=== PATIENT | male | born 1995 | race African-American/Black ===

== ENCOUNTER 2017-07-04 19:56 | Inpatient (IN) | payer OTHER ==
[~2017-07-04] VITALS: Ht 180.3 cm; Wt 90.7 kg
[2017-07-04 20:00] VITALS: BP 109/64
--- NOTE | 2017-07-04 20:07 | NUR ---
Patient ambulated to bed 07.
--- NOTE | 2017-07-04 20:11 | NUR ---
PATIENT PRESENTS TO ED WITH BACK PAIN 2 DAYS AGO S/P SPINAL TAP, FEVER FOR A WEEK, [place] AN HOUR AGO, NAUSEA,DIARRHEA, POOR APPETITE, SEVERE HEADACHE,FEVER . PT STATES IT WAS DONE IN [place] . DENIES VOMITTING,SKIN IS PINK/WARM/DRY; AAOX4 WITH EVEN AND STEADY GAIT; LUNGS CLEAR BL; HR EVEN AND REGULAR; PT DENIES CP, SOB, OR COUGH AT THIS TIME; PATIENT STATES PAIN OF 10/10 AT THIS TIME; PATIENT POSITIONED FOR COMFORT; HOB ELEVATED; BEDRAILS UP X2; BED DOWN. ER MD MADE AWARE OF PT STATUS.
--- NOTE | 2017-07-04 21:08 | NUR ---
DR. ROSADO AT BEDSIDE
[2017-07-04] MEDS ORDERED: fentaNYL 0.05 MG/ML VIAL IVP ONE (21:30)
[2017-07-04] MEDS ORDERED: NACL 0.9% 1,000 ML IV ONE (21:30)
--- NOTE | 2017-07-04 21:56 | NUR ---
PT USING HIS PHONE, STILL COMPLAINING OF PAIN, FAMILY AT BEDSIDE, NO VOMITTING NOTED.
[2017-07-04 22:08] LABS: BASOPHILS # (AUTO) 0.3 K/uL (0.00-0.22); MEAN CORPUSCULAR VOLUME 89 fL (80-94); WHITE BLOOD COUNT (AUTO) 6.3 K/uL (4.5-11.0)
[2017-07-04 22:16] LABS: BASOPHILS % (AUTO) 4.3 % (0.0-2.0); EOSINOPHILS # (AUTO) 0.2 K/uL (0-0.4); EOSINOPHILS % (AUTO) 2.9 % (0.0-4.0); HEMATOCRIT 39.5 % (36-52); HEMOGLOBIN 13.1 g/dL (12.0-18.0); LYMPHOCYTES # (AUTO) 1.9 K/uL (2.0-11.5); LYMPHOCYTES % (AUTO) 30.4 % (20.5-51.1); MEAN CORPUSCULAR HEMOGLOBIN 30 pg (27-31); MEAN CORPUSCULAR HGB CONC 33 g/dL (33-37); MONOCYTES # (AUTO) 0.9 K/uL (0.8-1.0); MONOCYTES % (AUTO) 14.3 % (1.7-9.3); NEUTROPHILS % (AUTO) 48.1 % (42.2-75.2); PLATELET COUNT (AUTO) 206 K/uL (140-450); RED BLOOD CELL COUNT(AUTO) 4.43 MIL/uL (4.20-6.10); RED CELL DISTRIBUTION WIDTH 12.1 % (11.6-13.7)
--- NOTE | 2017-07-04 22:16 | NUR ---
IVF ONGOING PT STILL COMPLAINING OF BACK PAIN 06/01, PT TRYING TO REST, WILL CONTINUE TO OBSERVE PT.
[2017-07-04 22:23] LABS: ALBUMIN 3.3 g/dL (3.4-5.0); ANION GAP 11.1 (8-16); CALCIUM 8.6 mg/dL (8.5-10.1); CARBON DIOXIDE 25.7 mmol/L (21-32); CREATININE 1.4 mg/dL (0.7-1.3); POTASSIUM 3.8 mmol/L (3.5-5.1); TOTAL BILIRUBIN 0.5 mg/dL (0.0-1.0)
[2017-07-04 22:28] LABS: INR 1.3 (0.8-1.2); PARTIAL THROMBOPLASTIN TIME 32.3 secs (22-35.6); PROTHROMBIN TIME 12.9 secs (10.8-13.4)
[2017-07-04] MEDS ORDERED: ACETAMINOPHEN 325 MG TAB PO PRN (22:55)
[2017-07-04] MEDS ORDERED: NACL 0.9% 1,000 ML IV SCH (22:55)
[2017-07-04] MEDS ORDERED: DOCUSATE SODIUM 100 MG GELCAP PO PRN (22:55)
[2017-07-04] MEDS ORDERED: ONDANSETRON 4 MG/2 ML VIAL IM/IVP PRN (22:55)
--- NOTE | 2017-07-04 23:07 | NUR ---
CALL PLACE TO TELE NURSE FOR REPORT WILL CALL ME BACK
[2017-07-04] MEDS ORDERED: HYDROmorphone 1 MG/ML AMP IVP ONE (23:10)
--- NOTE | 2017-07-04 23:25 | NUR ---
Pt report given to LULY. Transfer of care at this time.PT AAO, SMILING, FAMILY AT BEDSIDE
--- NOTE | 2017-07-04 23:35 | NUR ---
ADMITTED PATIENT TO THE TELE UNIT, PATIENT AWAKE ALERT ORIENTED X4, NO S/S OF ACUTE DISTRESS NOTED, RESPIRATION EVEN AND UNLABORED, TELE MONITOR IN PLACE. PATIENT'S GRANDMOTHER AT BEDSIDE. PATIENT STATED BACK PAIN 06/01, DILAUDID WAS GIVEN IN THE ER AT 2322, LOWER THE HEAD OF BED TO 30 DEGREE, PATIENT STATED,"BETTER". PLAN OF CARE DISCUSSED, PATIENT VERBALIZED UNDERSTANDING, CALL LIGHT WITHIN REACH, SAFETY MEASURE ENSURED, WARM BLANKET WAS OFFERED, WILL CONTINUE TO MONITOR.
[2017-07-04 23:38] LABS: CHOL/HDL RATIO 4.1 (1-4.5); FREE T4 (FREE THYROXINE) 1.12 ng/dL (0.76-1.46); PHOSPHORUS 3.4 mg/dL (2.5-4.9); THYROID STIMULATING HORMONE 1.31 uIU/mL (0.34-3.74)
[2017-07-04 23:40] VITALS: BP 112/63
[2017-07-05] VITALS: BP 112/63
--- NOTE | 2017-07-05 00:10 | NUR ---
PATIENT IS EXAMINED BY DR. ARMENTA IN THE ROOM
--- NOTE | 2017-07-05 01:30 | NUR ---
SCD NOT APPLIED BECAUSE PATIENT IS AMBULATORY.
[2017-07-05 01:32] LABS: APPEARANCE,URINE HAZY (CLEAR); BILIRUBIN,URINE 1+ (NEGATIVE); BLOOD, URINE NEGATIVE (NEGATIVE); LEUKOCYTE ESTERASE ,URINE NEGATIVE (NEGATIVE); NITRITE, URINE NEGATIVE (NEGATIVE); PROTEIN,URINE 1+ (NEGATIVE); UGLUCOSE NEGATIVE (NEGATIVE)
[2017-07-05 01:41] LABS: AMPHETAMINE, URINE NEG. ng/ml (NEG <=1000); BARBITURATE, URINE NEG. ng/ml (NEG <=200); BENZODIAZEPINE, URINE NEG. ng/mL (NEG <=200); CANNABINOID, URINE NEG. ng/mL (NEG <=50); COCAINE, URINE NEG. ng/mL (NEG <=300); OPIATE, URINE POS. ng/mL (NEG <=2000); PHENCYCLIDINE SCREEN,URINE NEG. ng/mL (NEG <=25)
[2017-07-05 01:42] LABS: COLOR,URINE AMBER (YELLOW)
[2017-07-05 01:43] LABS: ICTOTEST NEGATIVE (NEGATIVE)
[2017-07-05 01:44] LABS: BACTERIA,URINE OCCASSIONAL /HPF (None Seen); RBC,URINE 0-5 (RARE) /HPF (0-5); SQUAMOUS EPITHELIAL CELL,UR 0-3 (FEW) /LPF (0-3 (FEW))
[2017-07-05 01:45] LABS: MUCUS,URINE 3+ /LPF (None Seen)
[2017-07-05 04:00] VITALS: BP 110/54
[2017-07-05] MEDS: MORPHINE SULFATE 2 MG/ML SYR IVP PRN ×4 (04:16→19:46)
--- NOTE | 2017-07-05 04:16 | NUR ---
PATIENT STATED BACK PAIN 8/10, MEDICATED ORDERED, REPOSITIONED PATIENT TO HIS COMFORTABLE POSITION. CALL LIGHT WITHIN REACH, SAFETY MEASURE ENSURED, WILL CONTINUE TO MONITOR.
--- NOTE | 2017-07-05 06:30 | NUR ---
PATIENT SLEEPING IN BED, NO S/S OF ACUTE DISTRESS NOTED, RESPIRATION EVEN AND UNLABORED, WILL CONTINUE TO MONITOR.
--- NOTE | 2017-07-05 07:02 | NUR ---
PATIENT HAS BEEN SCREENED AND CATEGORIZED LOW NUTRITION RISK. PATIENT WILL BE SEEN WITHIN 7 DAYS OF ADMISSION. 07/10/17 KEVIN HAYNES MS, RDN
--- NOTE | 2017-07-05 07:25 | NUR ---
ENDORSED PLAN OF CARE TO DAY RN, PATIENT RESTING IN BED, IN STABLE CONDITION. RESPIRATION EVEN AND UNLABORED.
--- NOTE | 2017-07-05 07:26 | NUR ---
PT AWAKE AND ALERT, NO SIGNS OF ACUTE DISTRESS. BOWEL SOUNDS ACTIVE IN ALL 4 QUADRANTS. BOWEL AND BLADDER CONTINENCE. SKIN INTACT. AMBULATORY WITH BRP. IV PATENT AND ASYMPTOMATIC. PATIENT HAS PAIN 8/10 IN BACK WILL MEDICATE. RE-ORIENTED TO HOSPITAL AND TO UNIT, PATIENT VERBALIZED UNDERSTANDING. BED IN LOW POSITION WITH BILATERAL HALF SIDE RAILS UP, CALL LIGHT WITHIN REACH. WILL CONTINUE TO MONITOR.
[2017-07-05] MEDS ORDERED: SUMAtriptan 6 MG/0.5 ML VIAL SUBQ PRN (07:30)
[2017-07-05 08:00] VITALS: BP 98/53
--- NOTE | 2017-07-05 08:18 | NUR ---
PATIENT RESTING COMFORTABLY IN BED, COMPLAINT OF PAIN 8/10 IN BACK. ADMINISTERED MORPHINE IVP ORDERED, WILL CONTINUE TO MONITOR.
[2017-07-05] MEDS ORDERED: KETOROLAC 30 MG/ML VIAL IM PRN (09:05)
--- NOTE | 2017-07-05 10:30 | NUR ---
PT SLEEPING, NO SIGNS OF ACUTE DISTRESS. BED IN LOW POSITION WITH BILATERAL HALF SIDE RAILS UP, CALL LIGHT WITHIN REACH, SAFETY CHECKS IN PLACE. WILL CONTINUE TO MONITOR.
[2017-07-05 12:00] VITALS: BP 102/50
--- NOTE | 2017-07-05 12:00 | NUR ---
PATIENT TEMPERATURE OF 101.4 AND PULSE 72. MEDICATED WITH PRN TYLENOL ORDERED AND APPLIED ICE PACKS BETWEEN PATIENT ANTERIOR THIGH AND GROIN. WILL CONTINUE TO MONITOR.
--- NOTE | 2017-07-05 12:19 | NUR ---
DR ECHEVARRIA MADE AWARE OF PATIENT TEMPERATURE OF 101.4 AND PULSE 72. WILL CONTINUE TO MONITOR.
[2017-07-05] MEDS: NACL 0.9% 1,000 ML IV SCH ×2 (12:26→14:56)
--- NOTE | 2017-07-05 13:18 | NUR ---
RE-ASSESSED PATIENT TEMPERATURE AND PULSE. TEMPERATURE IS 99.2 AND PULSE IS 82. WILL CONTINUE TO MONITOR.
--- NOTE | 2017-07-05 14:02 | NUR ---
RECEIVED NEW ORDER FOR PATIENT TO LAY FLAT TO CONTROL HEADACHE AND DUE TO RECENT LUMBAR PUNCTURE. NOTED, WILL CARRY OUT.
[2017-07-05] MEDS: HYDROcodone/APAP 7.5/325 MG 1 TAB PO PRN ×2 (15:40→22:10)
--- NOTE | 2017-07-05 15:40 | NUR ---
PATIENT RESTING COMFORTABLY IN BED, NO SIGNS OF ACUTE DISTRESS. COMPLAINT OF PAIN 6/10 IN BACK, WILL MEDICATE. PATIENT LYING FLAT, BED IN LOW POSITION WITH BILATERAL HALF SIDE RAILS UP, CALL LIGHT WITHIN REACH.
--- NOTE | 2017-07-05 15:50 | NUR ---
PT SLEEPING, NO SIGNS OF ACUTE DISTRESS. BED IN LOW POSITION LYING FLAT, WITH BILATERAL HALF SIDE RAILS UP, CALL LIGHT WITHIN REACH. SAFETY CHECKS IN PLACE, WILL CONTINUE TO MONITOR.
[2017-07-05 16:00] VITALS: BP 104/56
--- NOTE | 2017-07-05 16:40 | NUR ---
PT SLEEPING, NO SIGNS OF ACUTE DISTRESS. PATIENT LYING FLAT WITH BILATERAL HALF SIDE RAILS UP, CALL LIGHT WITHIN REACH. SAFETY CHECKS IN PLACE, WILL CONTINUE TO MONITOR.
--- NOTE | 2017-07-05 17:58 | NUR ---
PT SITTING UPRIGHT EATING DINNER, NO SIGNS OF ACUTE DISTRESS. BED IN LOW POSITION WITH BILATERAL HALF SIDE RAILS UP, CALL LIGHT WITHIN REACH. WILL CONTINUE TO MONITOR.
--- NOTE | 2017-07-05 19:16 | NUR ---
PT AWAKE AND ALERT, NO SIGNS OF ACUTE DISTRESS. ENDORSED TO TECHNICIAN HELPER INSTRUMENT NURSE FOR CONTINUITY OF CARE.
--- NOTE | 2017-07-05 19:20 | NUR ---
RECEIVED REPORTS FROM DAY RN, PATIENT RESTING IN BED, AWAKE ALERT ORIENTED X4, NO S/S OF ACUTE DISTRESS NOTED, RESPIRATION EVEN AND UNLABORED, PATIENT STATED BACK PAIN 06/01, ENSURED PATIENT THAT PAIN MEDICATION WOULD BE GIVEN ORDERED, PLAN OF CARE DISCUSSED, PATIENT VERBALIZED UNDERSTANDING, CALL LIGHT WITHIN REACH, SAFETY MEASURE ENSURED, WILL CONTINUE TO MONITOR
--- NOTE | 2017-07-05 19:46 | NUR ---
PAIN MEDICATION GIVEN ORDERED, PATIENT RESTING IN BED, ROOM LIGHTS DIM, WILL CONTINUE TO MONITOR.
[2017-07-05 20:00] VITALS: BP 105/66
--- NOTE | 2017-07-05 22:22 | NUR ---
MADE ROUNDS, PATIENT REPORTED BACK PAIN 5/10, MEDICATED ORDERED, PATIENT RESTING IN BED, NO S/S OF ACUTE DISTRESS NOTED, RESPIRATION EVEN AND UNLABORED, WILL CONTINUE TO MONITOR.
[2017-07-06] VITALS: BP 113/59
[2017-07-06] MEDS: NACL 0.9% 1,000 ML IV SCH ×4 (00:34→22:30)
--- NOTE | 2017-07-06 00:37 | NUR ---
STARTED A NEW BAY OF NS, PATIENT SLEEPING IN BED, NO S/S OF ACUTE DISTRESS NOTED, RESPIRATION EVEN AND UNLABORED, SAFETY MEASURE ENSURED, WILL CONTINUE TO MONITOR.
--- NOTE | 2017-07-06 02:26 | NUR ---
MADE ROUNDS, PATIENT SLEEPING IN BED, NO S/S OF ACUTE DISTRESS NOTED, RESPIRATION EVEN AND UNLABORED, SAFETY MEASURE ENSURED, SCD APPLIED ON BOTH LOWER EXTREMITIES, WILL CONTINUE TO MONITOR.
[2017-07-06 04:00] VITALS: BP 102/57
--- NOTE | 2017-07-06 04:50 | NUR ---
PATIENT SLEEPING IN BED, NO S/S OF ACUTE DISTRESS NOTED, RESPIRATION EVEN AND UNLABORED, CALL LIGHT WITHIN REACH, SAFETY MEASURE ENSURED, WILL CONTINUE TO MONITOR.
[2017-07-06 05:51] LABS: HEMATOCRIT 39.1 % (36-52); HEMOGLOBIN 13.1 g/dL (12.0-18.0); MEAN CORPUSCULAR HEMOGLOBIN 30 pg (27-31); MEAN CORPUSCULAR HGB CONC 34 g/dL (33-37); MEAN CORPUSCULAR VOLUME 90 fL (80-94); PLATELET COUNT (AUTO) 225 K/uL (140-450); RED BLOOD CELL COUNT(AUTO) 4.33 MIL/uL (4.20-6.10); RED CELL DISTRIBUTION WIDTH 11.9 % (11.6-13.7); WHITE BLOOD COUNT (AUTO) 7.3 K/uL (4.5-11.0)
--- NOTE | 2017-07-06 06:09 | NUR ---
PATIENT SLEEPING IN BED, NO S/S OF ACUTE DISTRESS NOTED, RESPIRATION EVEN AND UNLABORED, CALL LIGHT WITHIN REACH, SAFETY MEASURE ENSURED, WILL CONTINUE TO MONITOR.
[2017-07-06 06:14] LABS: ANION GAP 9.4 (8-16); CALCIUM 8.2 mg/dL (8.5-10.1); CREATININE 1.5 mg/dL (0.7-1.3); POTASSIUM 4.4 mmol/L (3.5-5.1)
[2017-07-06 06:19] LABS: BAND % (MANUAL) 14 % (0-8); LYMPHOCYTES % (MANUAL) 28 % (20-46); MAGNESIUM 1.7 mg/dL (1.8-2.4); MONOCYTES % (MANUAL) 11 % (5-12); NEUTROPHILS % (MANUAL) 47 (43-65); PHOSPHORUS 2.9 mg/dL (2.5-4.9)
--- NOTE | 2017-07-06 07:05 | NUR ---
ENDORSED PLAN OF CARE TO DAY RN. PATIENT IS IN STABLE CONDITION, NO S/S OF ACUTE DISTRESS, RESPIRATION EVEN AND UNLABORED.
--- NOTE | 2017-07-06 07:06 | NUR ---
PT AWAKE AND ALERT, NO SIGNS OF ACUTE DISTRESS. BOWEL SOUNDS ACTIVE IN ALL 4 QUADRANTS. BOWEL AND BLADDER CONTINENCE. SKIN INTACT. AMBULATORY WITH BRP. PATIENT HAS PAIN 5/10 IN HEAD AND BACK DOESN'T WANT PAIN MEDICATION AT THIS TIME. RE-ORIENTED TO HOSPITAL AND TO UNIT, PT VERBALIZED UNDERSTANDING. BED IN LOW POSITION WITH BILATERAL HALF SIDE RAILS UP, CALL LIGHT WITHIN REACH. WILL CONTINUE TO MONITOR.
[2017-07-06 07:49] VITALS: BP 118/61
[2017-07-06] MEDS: HYDROcodone/APAP 7.5/325 MG 1 TAB PO PRN ×2 (08:07→18:42)
[2017-07-06 09:07] LABS: HEPATITIS A ANTIBODY IGM Negative (Negative); HEPATITIS A ANTIBODY TOTAL Negative (Negative); HEPATITIS B CORE AB TOTAL Negative (Negative); HEPATITIS B CORE, IGM Negative (Negative); HEPATITIS B SURFACE AB Reactive (.); HEPATITIS B SURFACE ANTIGEN Negative (Negative); HEPATITIS C VIRUS ANTIBODY <0.1 s/co ratio (0.0-0.9)
[2017-07-06] MEDS ORDERED: APAP/BUTAL/CAFF 325/50/40 MG 1 TAB PO SCH ×2 (09:49→12:00)
[2017-07-06] MEDS ORDERED: IBUPROFEN 600 MG TAB PO SCH ×2 (09:51→12:00)
--- NOTE | 2017-07-06 09:54 | NUR ---
RECEIVED NEW MEDICATION ORDERS, CHANGE TO MED SURG, REGULAR DIET AND TO KEEP SUPINE FOR HEADACHE. NOTED, WILL CARRY OUT.
[2017-07-06] MEDS: IBUPROFEN 600 MG TAB PO SCH ×2 (11:05→17:05)
[2017-07-06] MEDS: APAP/BUTAL/CAFF 325/50/40 MG 1 TAB PO SCH ×2 (11:05→17:05)
--- NOTE | 2017-07-06 12:30 | NUR ---
PT SITTING UPRIGHT EATING LUNCH, NO SIGNS OF ACUTE DISTRESS. SAFETY CHECK IN PLACE. WILL CONTINUE TO MONITOR.
--- NOTE | 2017-07-06 12:32 | NUR ---
[facility] NOTE: FAXED INITIAL REVIEW TO [facility] [phone] [facility]ILL [id number] Addendum: 07/06/17 at 1329 by Katty Connell CM [facility] FAX# [phone]
--- NOTE | 2017-07-06 14:00 | NUR ---
PATIENT LYING SUPINE RESTING, NO SIGNS OF ACUTE DISTRESS. SAFETY CHECKS IN PLACE, WILL CONTINUE TO MONITOR.
--- NOTE | 2017-07-06 15:20 | NUR ---
PATIENT TAKING SHOWER, NO SIGNS OF ACUTE DISTRESS. WILL CONTINUE TO MONITOR.
[2017-07-06 16:00] VITALS: BP 110/56
--- NOTE | 2017-07-06 16:30 | NUR ---
PT RESTING IN SUPINE POSITION COMFORTABLY IN BED, NO SIGNS OF ACUTE DISTRESS. SAFETY CHECKS IN PLACE. WILL CONTINUE TO MONITOR.
--- NOTE | 2017-07-06 16:42 | NUR ---
RECEIVED ORDERS FOR AM LABS FOR 07/07/17. NOTED, WILL CARRY OUT.
--- NOTE | 2017-07-06 18:42 | NUR ---
PATIENT COMPLAINT OF PAIN 6/10 IN BACK, ADMINISTERED PRN PAIN MEDICATION ORDERED. PT LYING IN SUPINE POSITION, NO SIGNS OF ACUTE DISTRESS. WILL CONTINUE TO MONITOR.
--- NOTE | 2017-07-06 19:20 | NUR ---
PT AWAKE AND ALERT, NO SIGNS OF ACUTE DISTRESS. ENDORSED TO CHAINSTITCH PANTS OUTSEAMER NURSE FOR CONTINUITY OF CARE.
--- NOTE | 2017-07-06 19:25 | NUR ---
RECEIVED PT IN STABLE CONDITION FROM AM NURSE FOR CONTINUITY OF CARE. AWAKE,ALERT ALERT AND ORIENTED X4. MED SURG PT . JUST MEDICATED FOR PAIN BY AM NURSE. IVF INFUSING ON THE LT AC #20.CLEAR AND PATENT. MOM AT BEDSIDE. PLAN OF CARE DISCUSSED AND VERBALIZED UNDERSTANDING. MADE AWARE THAT NEEDS TO BE FLAT ON BED AND AGAIN VERBALIZED UNDERSTANDING. CALL LIGHT PLACED WITHIN EASY REACH. . BED ON LOW POSITION. FREQUENT ROUNDS NEEDED. WILL CONTINUE TO MONITOR.
[2017-07-06] MEDS ORDERED: MAGNESIUM OXIDE 400 MG TAB PO ONE (19:50)
[2017-07-06 21:02] VITALS: BP 127/69
[2017-07-06] MEDS: MORPHINE SULFATE 2 MG/ML SYR IVP PRN (21:10)
--- NOTE | 2017-07-06 22:10 | NUR ---
MADE ROUNDS. AWAKE, WITH NO MORE C/O OF ANY PAIN NOTED. FAMILY MEMBERS AT BEDSIDE. WILL CONTINUE TO MONITOR.
[2017-07-07 00:11] VITALS: BP 122/70
[2017-07-07] MEDS: IBUPROFEN 600 MG TAB PO SCH ×2 (00:14→05:52)
[2017-07-07] MEDS: APAP/BUTAL/CAFF 325/50/40 MG 1 TAB PO SCH ×2 (00:14→05:51)
--- NOTE | 2017-07-07 00:14 | NUR ---
PT STILL WITH MILD TO MODERATE PAIN . ROUTINE PO MEDS FOR PAIN GIVEN ORDERED. WILL CONTINUE TO MONITOR
--- NOTE | 2017-07-07 02:00 | NUR ---
MADE ROUNDS . SLEEPING AT THIS TIME. NO S/S OF ANY DISCOMFORT NOR PAIN NOTED.
--- NOTE | 2017-07-07 04:30 | NUR ---
MADE ROUNDS. PT IS ASLEEP. NO S/S OF ANY DISCOMFORT NOR PAIN NOTED.
[2017-07-07] MEDS: NACL 0.9% 1,000 ML IV SCH (06:12)
[2017-07-07 06:21] LABS: HEMOGLOBIN A1C 5.5 % (4.8-5.6); T4 (THYROXINE) 9.1 ug/dL (4.5-12.0)
[2017-07-07 06:31] LABS: HEMATOCRIT 38.6 % (36-52); HEMOGLOBIN 12.8 g/dL (12.0-18.0); MEAN CORPUSCULAR HEMOGLOBIN 30 pg (27-31); MEAN CORPUSCULAR HGB CONC 33 g/dL (33-37); MEAN CORPUSCULAR VOLUME 90 fL (80-94); PLATELET COUNT (AUTO) 203 K/uL (140-450); RED BLOOD CELL COUNT(AUTO) 4.28 MIL/uL (4.20-6.10); RED CELL DISTRIBUTION WIDTH 12.3 % (11.6-13.7); WHITE BLOOD COUNT (AUTO) 5.3 K/uL (4.5-11.0)
[2017-07-07 06:45] LABS: ANION GAP 9.4 (8-16); CALCIUM 8.4 mg/dL (8.5-10.1); CARBON DIOXIDE 27.9 mmol/L (21-32); CREATININE 1.3 mg/dL (0.7-1.3); POTASSIUM 4.3 mmol/L (3.5-5.1)
[2017-07-07 06:58] LABS: BAND % (MANUAL) 7 % (0-8); EOSINOPHILS % (MANUAL) 9 % (0-4); LYMPHOCYTES % (MANUAL) 39 % (20-46); MONOCYTES % (MANUAL) 13 % (5-12); NEUTROPHILS % (MANUAL) 32 (43-65)
--- NOTE | 2017-07-07 07:28 | NUR ---
ENDORSED PT IN STABLE CONDITION TO AM NURSE.
--- NOTE | 2017-07-07 07:29 | NUR ---
RECEIVED PT IN BED. ASLEEP. AROUSABLE TO VOICE. ALERT ORIENTED X4. NO SOB NOTED. DENIES ANY PAIN OR DISCOMFORT AT THIS TIME. POSITIVE BOWEL SOUNDS NOTED ON FOUR QUADRANTS. PT AMBULATORY BRP. MOTHER AT BEDSIDE. SAFETY PRECAUTION IN PLACE. CALL LIGHT WITHIN REACH.
[2017-07-07 08:00] VITALS: BP 117/51
[2017-07-07] MEDS ORDERED: IBUP-2213 PO ×2 (09:38→11:09)
--- NOTE | 2017-07-07 09:49 | NUR ---
CM NOTE: FAXED CONCURRENT REVIEW TO [facility] [phone] [facility] CHAN EXT [phone]
--- NOTE | 2017-07-07 10:33 | NUR ---
DISCHARGE ORDERS MADE AND CARRIED OUT. EXPLAINED DISCHARGE INSTRUCTIONS AND HEALTH TEACHINGS GIVEN TO PT. AND GRANDMOTHER MARC OZUNA AT BEDSIDE. PT AND GRANDMOTHER VERBALIZED UNDERSTANDING. REMINDED TO GO TO THE SCHEDULED APPOINTMENT WITH DR. PERKINS ON Thursday AT 2:30PM. PT AND GRANDMOTHER VERBALIZED UNDERSTANDING. DISCHARGE PAPERS AND INSTRUCTIONS UNDERSTOOD BY PT. AND SIGNED DISCHARGE PAPERS. IV CANNULA REMOVED AND INTACT. NAME ARMBAND REMOVED. NO SOB NOTED. DENIES ANY PAIN OR DISCOMFORT AT THIS TIME.
--- NOTE | 2017-07-07 10:45 | NUR ---
PT WHEELED OUT GOING TO THE HOSPITAL PARKING LOT WITH GRANDMOTHER MARC, TO THEIR PRIVATE OWNED VEHICLE. NO SOB NOTED. DENIES ANY PAIN OR DISCOMFORT AT THIS TIME. PT DISCHARGED ON STABLE CONDITION.
== END 2017-07-07 10:45 | disposition home or self-care (01) | DRG 102 ==
LOC: MED 19:56 → MTU 22:55
PROVIDERS: ADMIT Family Medicine; ATTEND Family Medicine
DX: G97.1 Other reaction to spinal and lumbar puncture (principal); N17.0 Acute kidney failure with tubular necrosis; E44.1 Mild protein-calorie malnutrition; E66.3 Overweight; Z68.27 Body mass index [BMI] 27.0-27.9, adult; E83.42 Hypomagnesemia; E83.52 Hypercalcemia; R74.0 Nonspecific elevation of levels of transaminase and lactic acid dehydrogenase [LDH]
CPT/HCPCS: 36415; 71020; 76700; 80048; 80053; 80305; 81001; 82150; 83036; 83690; 83735; 83880; 84100; 84436; 84439; 84443; 84479; 85025; 85610; 85730; 86704; 86706; 86708; 86709; 86803; 87040; 87081; 87086; 87340; 93005; 96361; 96374; 96375; 99285; J1170; J2270; J3010; J3030; J7030; Q0092

== ENCOUNTER 2017-07-12 12:29 | Emergency (ER) | payer OTHER ==
[~2017-07-12] VITALS: Ht 180.3 cm; Wt 89.8 kg
[~2017-07-12 12:29] MED LIST: IBUP-2213 PO
[2017-07-12 12:41] VITALS: BP 112/70
--- NOTE | 2017-07-12 12:54 | NUR ---
Patient to bed 04.
--- NOTE | 2017-07-12 13:00 | NUR ---
Dr. Cheng evaluating patient at bedside.
--- NOTE | 2017-07-12 13:05 | NUR ---
PATIENT PRESENTS TO ED WITH C/O BROWN COLORED URINE X 2 WKS---FOUL SMELL X YESTERDAY---PT TOOK 1 DOSE OF BUT/TYLENOL/CAFF ON THURSDAY AND NOTED FOUL URINE SMELL AND PRURITUS DENIES RECENT INJURY OR STRENUOUS ACITIVITIES, DENIES BACK PAIN +FEVER/CHILLS--- DC FROM [facility] [facility] 5 DAYS AGO HX---DENIES RX---TYLENOL ; DENIES N/V/D; SKIN IS PINK/WARM/DRY; AAOX4 WITH EVEN AND STEADY GAIT; LUNGS CLEAR BL; HR EVEN AND REGULAR; PT DENIES ANY FEVER, CP, SOB, OR COUGH AT THIS TIME; PATIENT STATES PAIN OF 0/10 AT THIS TIME; VSS; PATIENT POSITIONED FOR COMFORT; HOB ELEVATED; BEDRAILS UP X2; BED DOWN. ER MADE AWARE OF PT STATUS.
[2017-07-12 13:21] LABS: APPEARANCE,URINE CLEAR (CLEAR); BILIRUBIN,URINE NEGATIVE (NEGATIVE); BLOOD, URINE NEGATIVE (NEGATIVE); COLOR,URINE YELLOW (YELLOW); LEUKOCYTE ESTERASE ,URINE NEGATIVE (NEGATIVE); NITRITE, URINE NEGATIVE (NEGATIVE); PROTEIN,URINE NEGATIVE (NEGATIVE); UGLUCOSE NEGATIVE (NEGATIVE)
[2017-07-12 13:26] VITALS: BP 114/74
--- NOTE | 2017-07-12 13:26 | NUR ---
Patient discharged with v/s stable. Written and verbal after care instructions given and explained. Patient verbalized understanding. Ambulatory with steady gait. All questions addressed prior to discharge. Advised to follow up with PMD.
[2017-07-13 12:13] LABS: HIV 1/0/2 ABS, QUAL Non Reactive (Non Reactive)
[2017-07-14 06:16] LABS: CHLAMYDIA TRACHOMATIS AMP DNA Negative (Negative)
== END 2017-07-12 13:26 | disposition home or self-care (01) ==
LOC: MED 12:29
DX: A64 Unspecified sexually transmitted disease (principal); Z88.6 Allergy status to analgesic agent; Z88.5 Allergy status to narcotic agent
CPT/HCPCS: 36415; 81003; 86592; 86702; 87491; 99284

== ENCOUNTER 2017-07-15 00:04 | Emergency (ER) | payer OTHER ==
[~2017-07-15] VITALS: Ht 177.8 cm; Wt 89.8 kg
[2017-07-15 00:09] VITALS: BP 121/70
--- NOTE | 2017-07-15 01:39 | NUR ---
PT TAKEN TO BED 8
--- NOTE | 2017-07-15 01:52 | NUR ---
21Y M BIB FAMILY C/O STIFF NECK X 2 HOURS AGO WHILE AT HOME. PT DENIES ANY INJURY OR TRAUMA TO THE AREA. PT DENIES ANY N/V BUT DID STATE HE HAD DIARRHEA X 2 DAYS. PT STATES PAIN IN NECK SHARP AND BURNING.
--- NOTE | 2017-07-15 02:25 | NUR ---
Dr. Eduardo evaluating patient at bedside.
[2017-07-15] MEDS ORDERED: NACL 0.9% 1,000 ML IV ONE (02:41)
[2017-07-15] MEDS ORDERED: DIAZEPAM 5 MG TAB PO ONE (02:45)
[2017-07-15] MEDS ORDERED: METOCLOPRAMIDE 10 MG/2 ML INJ VIAL IVP ONE (02:45)
[2017-07-15] MEDS ORDERED: KETOROLAC 30 MG/ML VIAL IVP ONE (02:45)
[2017-07-15 03:06] LABS: BASOPHILS # (AUTO) 0.4 K/uL (0.00-0.22); EOSINOPHILS # (AUTO) 0.2 K/uL (0-0.4); LYMPHOCYTES # (AUTO) 5.1 K/uL (2.0-11.5); MONOCYTES # (AUTO) 0.9 K/uL (0.8-1.0)
[2017-07-15 03:15] LABS: BASOPHILS % (AUTO) 3.8 % (0.0-2.0); EOSINOPHILS % (AUTO) 1.7 % (0.0-4.0); HEMATOCRIT 35.7 % (36-52); HEMOGLOBIN 11.8 g/dL (12.0-18.0); MEAN CORPUSCULAR HEMOGLOBIN 29 pg (27-31); MEAN CORPUSCULAR HGB CONC 33 g/dL (33-37); MEAN CORPUSCULAR VOLUME 89 fL (80-94); MONOCYTES % (AUTO) 9.8 % (1.7-9.3); NEUTROPHILS # (AUTO) 2.7 K/uL (1.8-7.7); NEUTROPHILS % (AUTO) 29.5 % (42.2-75.2); PLATELET COUNT (AUTO) 281 K/uL (140-450); RED BLOOD CELL COUNT(AUTO) 4.03 MIL/uL (4.20-6.10); RED CELL DISTRIBUTION WIDTH 12.9 % (11.6-13.7); WHITE BLOOD COUNT (AUTO) 9.3 K/uL (4.5-11.0)
--- NOTE | 2017-07-15 03:19 | NUR ---
PT RETURN FROM CT
[2017-07-15 03:20] LABS: ANION GAP 12.8 (8-16); CARBON DIOXIDE 28.4 mmol/L (21-32); CREATININE 1.6 mg/dL (0.7-1.3); POTASSIUM 4.2 mmol/L (3.5-5.1)
[2017-07-15 03:47] LABS: LYMPHOCYTES % (AUTO) 55.2 % (20.5-51.1)
--- NOTE | 2017-07-15 05:20 | NUR ---
IV removed, catheter intact and site benign. Applied folded 4x4 gauze and tape to stop bleeding.
--- NOTE | 2017-07-15 05:30 | NUR ---
Patient discharged with v/s stable. Written and verbal after care instructions given and explained. Patient alert, oriented and verbalized understanding of instructions. Ambulatory with steady gait. All questions addressed prior to discharge. ID band removed. Patient advised to follow up with PMD. Rx of LIDODERM PATCH, NAPROSYN 500MG, VALIUM 5MG given. Patient educated on indication of medication including possible reaction and side effects. Opportunity to ask questions provided and answered.
[2017-07-15 05:32] VITALS: BP 114/68
== END 2017-07-15 05:30 | disposition home or self-care (01) ==
LOC: MED 00:04
DX: R51 Headache (principal); M62.838 Other muscle spasm; Z88.6 Allergy status to analgesic agent; Z88.8 Allergy status to other drugs, medicaments and biological substances
CPT/HCPCS: 36415; 70450; 72125; 80048; 85025; 96361; 96374; 96375; 99285; J1885; J2765; J7030

== ENCOUNTER 2017-07-31 21:39 | Emergency (ER) | payer SELFPAY ==
--- NOTE | 2017-07-31 21:45 | NUR ---
CALLED PT FOR TRIAGE ASSESSMENT, NO ANSWER.
--- NOTE | 2017-07-31 21:53 | NUR ---
CALLED PT X2 FOR TRIAGE ASSESSMENT, NO ANSWER.
--- NOTE | 2017-07-31 22:19 | NUR ---
PATIENT LEFT WITHOUT BEING SEEN BY DR. BALDERAS. NO FURTHER CARE PROVIDED FOR PATIENT.
== END 2017-07-31 22:19 | disposition left against medical advice (07) ==
LOC: MED 21:39
DX: M54.9 Dorsalgia, unspecified (principal); Z53.21 Procedure and treatment not carried out due to patient leaving prior to being seen by health care provider